=== PATIENT | male | born 1970 | race African-American/Black ===

== ENCOUNTER 2017-05-15 09:55 | Emergency (ER) | payer OTHER ==
[~2017-05-15] VITALS: Ht 198.1 cm; Wt 145.0 kg
[2017-05-15] MEDS ORDERED: AMLO10TA80 PO (10:30)
[2017-05-15 11:42] LABS: CARBON DIOXIDE 28 mEq/L (21-32); CHLORIDE 105 mEq/L (98-107)
[2017-05-15 12:14] LABS: CLARITY URINE CLEAR (CLEAR); COLOR URINE YELLOW (YELLOW); GLUCOSE URINE NEGATIVE (NEGATIVE); KETONES URINE NEGATIVE (NEGATIVE); LEUKOCYTE ESTERASE URINE NEGATIVE (NEGATIVE); NITRITE URINE NEGATIVE (NEGATIVE); OCCULT BLOOD URINE TRACE (NEGATIVE); PROTEIN URINE NEGATIVE (NEGATIVE); SPECIFIC GRAVITY URINE 1.031 (1.005-1.030)
[2017-05-15] MEDS ORDERED: KETOROLAC 60MG/2ML VIAL IM NR (12:15)
[2017-05-15 12:31] VITALS: BP 142/78
== END 2017-05-15 13:53 | disposition home or self-care (01) ==
LOC: ER 10:27
DX: S93.401A Sprain of unspecified ligament of right ankle, initial encounter (principal); M77.31 Calcaneal spur, right foot; I10 Essential (primary) hypertension; W01.0XXA Fall on same level from slipping, tripping and stumbling without subsequent striking against object, initial encounter; Y93.89 Activity, other specified; Y92.89 Other specified places as the place of occurrence of the external cause; Y99.8 Other external cause status
CPT/HCPCS: 36415; 73610; 80053; 81001; 96372; 99285; J1885; Z7610

== ENCOUNTER 2019-07-21 14:56 | Emergency (ER) | payer MEDICAID ==
[~2019-07-21] VITALS: Ht 198.1 cm; Wt 142.0 kg
[~2019-07-21 14:56] MED LIST: AMLO10TA80 PO
[2019-07-21 17:54] VITALS: BP 130/90
== END 2019-07-21 20:30 | disposition left against medical advice (07) ==
LOC: ER 14:56
DX: Z53.21 Procedure and treatment not carried out due to patient leaving prior to being seen by health care provider (principal)

== ENCOUNTER 2024-01-15 04:46 | Emergency (ER) | payer MEDICAID ==
[~2024-01-15] VITALS: Ht 198.1 cm; Wt 150.0 kg
[2024-01-15 04:52] VITALS: O2SAT 96
[2024-01-15 06:14] LABS: EOSINOPHILS % 1.7 % (0.0-5.0); HEMOGLOBIN. 13.6 g/dL (14.0-18.0); LYMPHOCYTES % 26.2 % (20.0-50.0); MEAN CORPUSCULAR HEMOGLOBIN 31.2 pg (28.0-32.0); MEAN CORPUSCULAR VOLUME 91.6 fL (80.0-94.0); MEAN PLATELET VOLUME 7.5 fl (7.4-10.4); MONOCYTES % 11.3 % (2.0-8.0); NEUTROPHILS % 59.8 % (40.0-76.0); PLATELET 387 x1000/uL (130-400); RED BLOOD CELL COUNT 4.37 mill/uL (4.7-6.1); RED CELL DISTRIBUTION WIDTH 14.3 % (11.6-14.6); WHITE BLOOD COUNT 7.1 x1000/uL (4.5-11.0)
[2024-01-15 06:25] LABS: ALANINE AMINOTRANSFERASE 17 IU/L (10-49); ALBUMIN 4.2 g/dL (3.2-4.8); ASPARTATE AMINOTRANSFERASE 22 IU/L (<34); BILIRUBIN TOTAL 0.3 mg/dL (0.1-1.0); CALCIUM 8.8 mg/dL (8.7-10.4); CARBON DIOXIDE 25 mEq/L (21-32); CHLORIDE 110 mEq/L (98-107); GLUCOSE 117 mg/dL (70-105); POTASSIUM 4.1 mEq/L (3.5-5.1); PROTEIN TOTAL 7.6 g/dL (6.0-8.3); SODIUM 140 mEq/L (136-145); TROPONIN I HIGH SENSITIVITY 7 ng/L (3.0-53); UREA NITROGEN BLOOD 18 mg/dL (9-23)
[2024-01-15 08:41] LABS: CLARITY URINE CLEAR (CLEAR); COLOR URINE YELLOW (YELLOW); GLUCOSE URINE NEGATIVE (NEGATIVE); KETONES URINE NEGATIVE (NEGATIVE); LEUKOCYTE ESTERASE URINE NEGATIVE (NEGATIVE); NITRITE URINE NEGATIVE (NEGATIVE); OCCULT BLOOD URINE NEGATIVE (NEGATIVE); PH URINE 5.5 (4.5-8.0); PROTEIN URINE NEGATIVE (NEGATIVE); SPECIFIC GRAVITY URINE 1.018 (1.005-1.030); UROBILINOGEN URINE 0.2 E.U./dL (0.2-1.0)
[2024-01-15] MEDS ORDERED: AMLO10TA80 MT (09:39)
[2024-01-15] MEDS ORDERED: TOPUD MT (09:39)
[2024-01-15] MEDS ORDERED: CEPH500T MT (09:39)
[2024-01-15] MEDS ORDERED: IBUP-1525 MT (09:40)
[2024-01-15 09:50] VITALS: BP 146/96; PULSE 75; RESP 18; TEMP 98.2
== END 2024-01-15 09:52 | disposition home or self-care (01) ==
LOC: ER 04:46
DX: R05.9 Cough, unspecified (principal); R06.02 Shortness of breath; I10 Essential (primary) hypertension; Z20.822 Contact with and (suspected) exposure to COVID-19
CPT/HCPCS: 36415; 71045; 80053; 81003; 84484; 85025; 87426; 93005; 99285

== ENCOUNTER 2024-03-09 00:29 | Emergency (ER) | payer MEDICAID ==
[~2024-03-09] VITALS: Ht 198.1 cm; Wt 147.0 kg
[~2024-03-09 00:29] MED LIST changes: +AMLO10TA80 MT; +CEPH500T MT; +IBUP-1525 MT; +TOPUD MT
[2024-03-09 00:41] VITALS: BP 139/85; PULSE 84; RESP 14; TEMP 98.6; O2SAT 98
[2024-03-09] MEDS ORDERED: ACET-2708 MT (03:08)
[2024-03-09] MEDS ORDERED: ACETAMINOPHEN 325MG TABLET PO ONE (03:15)
== END 2024-03-09 04:08 | disposition home or self-care (01) ==
LOC: ER 00:29
DX: S50.02XA Contusion of left elbow, initial encounter (principal); I10 Essential (primary) hypertension; Z98.890 Other specified postprocedural states; X58.XXXA Exposure to other specified factors, initial encounter; Y93.89 Activity, other specified; Y92.89 Other specified places as the place of occurrence of the external cause; Y99.8 Other external cause status
CPT/HCPCS: 73080; 99283; Z7610

== ENCOUNTER 2024-10-17 05:24 | Emergency (ER) | payer MEDICAID ==
[~2024-10-17] VITALS: Ht 198.1 cm; Wt 150.0 kg
[~2024-10-17 05:24] MED LIST changes: +ACET-2708 MT
[2024-10-17 05:25] VITALS: TEMP 97.2; O2SAT 100
[2024-10-17 06:17] LABS: BASOPHILS % 0.6 % (0.0-2.0); EOSINOPHILS % 0.4 % (0.0-5.0); HEMATOCRIT. 51.1 % (42.0-52.0); MEAN CORPUSCULAR HEMOGLOBIN 31.6 pg (28.0-32.0); MEAN CORPUSCULAR HGB CONC 33.3 g/dL (31.0-37.0); MEAN CORPUSCULAR VOLUME 94.8 fL (80.0-94.0); MONOCYTES % 9.5 % (2.0-8.0); NEUTROPHILS % 67.5 % (40.0-76.0); RED BLOOD CELL COUNT 5.39 mill/uL (4.7-6.1); WHITE BLOOD COUNT 10.4 x1000/uL (4.5-11.0)
[2024-10-17] MEDS: ASPIRIN 325MG EC TABLET PO ONE (06:22)
[2024-10-17 06:27] LABS: CHLORIDE 107 mEq/L (98-107); POTASSIUM 4.5 mEq/L (3.5-5.1); SODIUM 139 mEq/L (136-145)
[2024-10-17 06:28] LABS: CALCIUM 9.9 mg/dL (8.7-10.4); CARBON DIOXIDE 23 mEq/L (21-32)
[2024-10-17 06:30] LABS: DIFFERENTIAL COMMENT 1
[2024-10-17 06:33] LABS: CREATININE 1.1 mg/dL (0.6-1.3); GLUCOSE 91 mg/dL (70-105); TROPONIN I HIGH SENSITIVITY 15 ng/L (3.0-53); UREA NITROGEN BLOOD 20 mg/dL (9-23)
[2024-10-17 06:36] LABS: ETHANOL BLOOD < 10 mg/dL (<10)
[2024-10-17] MEDS: AMLODIPINE 10MG TABLET PO ONE (06:59)
[2024-10-17] MEDS: IBUPROFEN 400MG TABLET PO ONE (06:59)
[2024-10-17] MEDS: METHOCARBAMOL 750MG TABLET PO SCH (07:00)
[2024-10-17 07:09] VITALS: BP 164/97; PULSE 79; RESP 13; O2SAT 98
[2024-10-17 08:39] LABS: INR 1.1
[2024-10-17 08:50] LABS: TROPONIN I HIGH SENSITIVITY 14 ng/L (3.0-53)
[2024-10-17 09:17] LABS: CLARITY URINE CLEAR (CLEAR); COLOR URINE YELLOW (YELLOW); GLUCOSE URINE NEGATIVE (NEGATIVE); KETONES URINE TRACE (NEGATIVE); LEUKOCYTE ESTERASE URINE NEGATIVE (NEGATIVE); NITRITE URINE NEGATIVE (NEGATIVE); OCCULT BLOOD URINE NEGATIVE (NEGATIVE); PH URINE 5.5 (4.5-8.0); PROTEIN URINE NEGATIVE (NEGATIVE); SPECIFIC GRAVITY URINE 1.021 (1.005-1.030); UROBILINOGEN URINE 0.2 E.U./dL (0.2-1.0)
[2024-10-17 10:07] LABS: *AMPHETAMINES SCREEN URINE NEGATIVE (NEGATIVE); *BARBITURATES SCREEN URINE NEGATIVE (NEGATIVE); *BENZODIAZEPINES SCREEN URINE NEGATIVE (NEGATIVE); *COCAINE SCREEN URINE PRESUMPTIVE POSITIVE (NEGATIVE)
[2024-10-17 10:08] LABS: CANNABINOID URINE SCREEN NEGATIVE (NEGATIVE); ECSTASY MDMA SCREEN URINE NEGATIVE (NEGATIVE); METHADONE URINE SCREEN NEGATIVE (NEGATIVE); OPIATES URINE SCREEN NEGATIVE (NEGATIVE); PHENCYCLIDINE URINE SCREEN NEGATIVE (NEGATIVE)
[2024-10-17 10:21] LABS: MEAN PLATELET VOLUME 8.2 fl (7.4-10.4)
[2024-10-17 10:22] LABS: PLATELET 350 x1000/uL (130-400)
[2024-10-17] MEDS ORDERED: IBUP-2028 MT (10:23)
[2024-10-17] MEDS ORDERED: METH-653 MT (10:23)
[2024-10-17] MEDS ORDERED: AMLO10TA80 MT (10:23)
[2024-10-18 19:06] LABS: CHLAMYDIA TRACHOMATIS NAA Negative (Negative); NEISSERIA GONORRHOEAE NAA Negative (Negative)
== END 2024-10-17 10:52 | disposition home or self-care (01) ==
LOC: ER 05:35
DX: R07.89 Other chest pain (principal); M71.22 Synovial cyst of popliteal space [Baker], left knee; F12.10 Cannabis abuse, uncomplicated; F14.10 Cocaine abuse, uncomplicated; I10 Essential (primary) hypertension; Z20.822 Contact with and (suspected) exposure to COVID-19; Z79.899 Other long term (current) drug therapy
CPT/HCPCS: 36415; 71045; 80048; 80305; 80320; 81003; 83880; 84484; 85025; 87426; 87491; 87591; 87804; 93005; 93970; 99285; G0480

== ENCOUNTER 2025-01-28 22:20 | Emergency (ER) | payer MEDICAID ==
[~2025-01-28] VITALS: Ht 198.1 cm; Wt 70.0 kg
[~2025-01-28 22:20] MED LIST changes: +IBUP-2028 MT; +METH-653 MT
[2025-01-28 22:27] VITALS: TEMP 36.8; O2SAT 99
[2025-01-28 23:26] LABS: BASOPHILS % 0.4 % (0.0-2.0); EOSINOPHILS % 0.7 % (0.0-5.0); HEMATOCRIT. 49.5 % (42.0-52.0); HEMOGLOBIN. 16.3 g/dL (14.0-18.0); LYMPHOCYTES % 16.5 % (20.0-50.0); MEAN CORPUSCULAR HEMOGLOBIN 30.1 pg (28.0-32.0); MEAN CORPUSCULAR HGB CONC 32.9 g/dL (31.0-37.0); MEAN CORPUSCULAR VOLUME 91.6 fL (80.0-94.0); MEAN PLATELET VOLUME 7.4 fl (7.4-10.4); NEUTROPHILS % 73.4 % (40.0-76.0); PLATELET 357 x1000/uL (130-400); RED CELL DISTRIBUTION WIDTH 14.3 % (11.6-14.6); WHITE BLOOD COUNT 9.1 x1000/uL (4.5-11.0)
[2025-01-28 23:29] LABS: CHLORIDE 111 mEq/L (98-107); POTASSIUM 3.4 mEq/L (3.5-5.1); SODIUM 143 mEq/L (136-145)
[2025-01-28 23:30] LABS: CALCIUM 7.7 mg/dL (8.7-10.4); CARBON DIOXIDE 25 mEq/L (21-32)
[2025-01-28 23:35] LABS: CREATININE 0.9 mg/dL (0.6-1.3); GLUCOSE 100 mg/dL (70-105); TROPONIN I HIGH SENSITIVITY 7 ng/L (3.0-53); UREA NITROGEN BLOOD 12 mg/dL (9-23)
[2025-01-28] MEDS: MORPHINE SULFATE 4 MG/ML INJ (FOR IV/IM USE) IV STA (23:39)
[2025-01-28] MEDS: ONDANSETRON HCL 4MG/2ML INJ IV STA (23:39)
[2025-01-28] MEDS: HYDROCORTISONE SOD SUCCINATE 100 MG/2 ML VIAL IV ONE (23:44)
[2025-01-29 02:35] LABS: TROPONIN I HIGH SENSITIVITY 10 ng/L (3.0-53)
[2025-01-29] MEDS: IOHEXOL-300 100 ML BOTTLE ONE (04:07)
[2025-01-29] MEDS ORDERED: METH-653 MT (05:02)
[2025-01-29] MEDS ORDERED: NAPR-1176 MT (05:02)
[2025-01-29 06:21] VITALS: BP 146/102; PULSE 80; RESP 16; O2SAT 98
== END 2025-01-29 06:23 | disposition home or self-care (01) ==
LOC: ER 22:20
DX: R07.89 Other chest pain (principal); M54.30 Sciatica, unspecified side; I10 Essential (primary) hypertension; F12.90 Cannabis use, unspecified, uncomplicated; Z79.899 Other long term (current) drug therapy; Z98.890 Other specified postprocedural states; Z79.1 Long term (current) use of non-steroidal anti-inflammatories (NSAID)
CPT/HCPCS: 99285; 96374; 96375; 71045; 80048; 85025; 84484 ×2; 36415 ×2; 74177; J1720; J2405; J2270; Q9967